=== PATIENT | female | born 1960 | race Two or more races ===

== ENCOUNTER 2020-07-03 20:59 | Emergency (ER) | payer OTHER ==
[~2020-07-03] VITALS: Ht 152.4 cm; Wt 72.6 kg
[2020-07-03] MEDS ORDERED: MORPHINE SULFATE 4 MG/ML SYR/VIAL IV ONE ×2 (21:30→23:15)
[2020-07-03] MEDS ORDERED: cloNIDine HCL 0.1 MG TAB PO ONE (21:30)
[2020-07-03] MEDS ORDERED: ONDANSETRON HCL 4 MG/2 ML VIAL IV ONE (21:30)
[2020-07-03 22:11] LABS: Basophils # (auto) 0 10 ^3/uL (0-0.2); Basophils % (auto) 0.6 % (0.0-2.0); Eosinophils # (auto) 0.1 10 ^3/uL (0-0.8); Eosinophils % (auto) 1.7 % (0.0-7.0); Hematocrit 38.9 % (36.0-46.0); Hemoglobin 13.1 g/dL (12.2-16.2); Lymphocytes # (auto) 3.5 10 ^3/uL (0.4-5.4); Lymphocytes % (auto) 48.3 % (10.0-50.0); Mean Corpuscular Hemoglobin 30.7 pg (28.0-32.0); Mean Corpuscular Hgb Conc. 33.8 g/dL (32.0-36.0); Mean Corpuscular Volume 90.8 fL (80.0-100.0); Monocytes # (auto) 0.6 10 ^3/uL (0-1.3); Monocytes % (auto) 8.3 % (0.0-12.0); Neutrophils % (auto) 41.1 % (37.0-80.0); Nucleated Red Blood Cells % 0.1 %; Platelet Count (auto) 322 10^3/uL (140-450); Red Blood Cells 4.28 10^6/uL (4.0-5.20); White Blood Cell 7.3 10^3/uL (4.4-10.8)
[2020-07-03 22:15] LABS: Albumin 3.7 g/dL (3.4-5.0); BUN/Creatinine Ratio 20.6; Calcium 8.7 mg/dL (8.5-10.1); Potassium 3.2 mmol/L (3.5-5.1)
[2020-07-03] MEDS ORDERED: TETANUS-DIPTH-ACEL PERTUSSIS 0.5ML SYR Tdap IM ONE (22:15)
[2020-07-03] MEDS ORDERED: cefTRIAXone 1GM/50ML D5W 50 ML IV ONE (22:15)
[2020-07-03 22:24] LABS: Bilirubin, Total 0.4 mg/dL (0.2-1.0); Total Protein 7.4 g/dL (6.4-8.2)
[2020-07-03] MEDS ORDERED: LABETALOL HCL 5 MG/ML 4ML SYRINGE IV ONE (23:00)
[2020-07-03 23:10] VITALS: BP 143/48
== END 2020-07-03 23:18 | disposition short-term general hospital (02) ==
LOC: ER 21:08
DX: S01.81XA Laceration without foreign body of other part of head, initial encounter (principal); S11.81XA Laceration without foreign body of other specified part of neck, initial encounter; I10 Essential (primary) hypertension; W54.0XXA Bitten by dog, initial encounter; Y93.89 Activity, other specified; Y92.89 Other specified places as the place of occurrence of the external cause; Y99.8 Other external cause status
CPT/HCPCS: 36415; 70486; 80053; 85025; 90471; 90715; 96365; 96375; 96376; 99285; J0696; J2270; J2405; J3490

== ENCOUNTER → 2020-12-29 | Outpatient (CLI) | payer SELFPAY | END | disposition home or self-care (01) | LOC: LAB 14:12 | PROVIDERS: ATTEND Nurse Practitioner Family | DX: Z20.822 Contact with and (suspected) exposure to COVID-19 (principal) | CPT/HCPCS: C9803; U0003 ==